=== PATIENT | female | born 1975 | race African-American/Black ===

== ENCOUNTER 2017-07-07 12:14 | Emergency (ER) | payer MEDICAID, SELFPAY ==
--- NOTE | 2017-07-07 13:23 | RAD ---
TWO VIEWS OF THE CHEST: COMPARISON: 05/31/12. HISTORY: Flu-like symptoms with cough and fever. FINDINGS: Two views of the chest show normal sized cardiomediastinal silhouette. There is no evidence of consol idation, mass, or pleural effusion. The bones are unremarkable. IMPRESSION: No evidence of acute cardiopulmonary disease. POS: [facility]
[2017-07-07 13:27] LABS: #Lymphocytes 1.2 thou/uL (1.20-3.40); #Monocytes 0.2 thou/uL (0.11-0.59); #Neutrophils 3.2 thou/uL (1.40-6.50); %Basophils 0.2 % (0.0-1.0); %Monocytes 4.7 % (0.0-10.0); %Neutrophils 70.1 % (42.0-75.0); Hemoglobin 13.2 g/dL (12.0-16.0); Mean Corpuscular HGB CONC 32.2 g/dL (32.0-36.0); Mean Corpuscular Hemoglobin 27.4 pg (27.0-31.0); Mean Platelet Volume 7.7 fL (7.4-10.4); Platelet Count 221 thou/uL (130-400); RBC Distribution Width 13.4 % (11.5-14.5); Red Blood Cell (RBC) Count 4.81 mill/uL (4.20-5.40); White Blood Cell (WBC) Count 4.6 thou/uL (4.8-10.8)
[2017-07-07 13:48] LABS: ALT (SGPT) 18 U/L (8-55); AST (SGOT) 22 U/L (5-34); Albumin 3.6 g/dL (3.5-5.0); Alkaline Phosphatase 96 U/L (40-150); Anion Gap 14 mmol/L (10-20); BUN (Urea Nitrogen) 11 mg/dL (7.0-18.7); Bilirubin, Total 0.3 mg/dL (0.2-1.2); Calc. Creatinine Clearance 0 mL/min (70-130); Calcium 8.8 mg/dL (7.8-10.44); Carbon Dioxide 22 mmol/L (22-29); Chloride 100 mmol/L (98-107); Estimated GFR-MDRD Greater than 90; Globulin 3.9 g/dL (2.4-3.5); Glucose 91 mg/dL (70-105); Potassium 3.1 mmol/L (3.5-5.1); Protein, Total 7.5 g/dL (6.0-8.3); Sodium 133 mmol/L (136-145)
[2017-07-07 13:51] LABS: CKMB 0.4 ng/mL (0-6.6); Troponin I 0.016 ng/mL (< 0.028)
--- NOTE | 2017-07-27 16:10 | EKG ---
Test Reason : Blood Pressure : / mmHG Vent. Rate : 081 BPM Atrial Rate : 081 BPM P-R Int : 142 ms QRS Dur : 086 ms QT Int : 364 ms P-R-T Axes : 044 053 031 degrees QTc Int : 422 ms Normal sinus rhythm Normal ECG Confirmed by MAXIMINO MULLER M.D. ([id number]), script editor CARLOS ALBERTO FIORE ([id number]) on 07/27/2017 4:09:36 PM Referred By: Confirmed By:MAXIMINO MULLER M.D.
== END 2017-07-07 13:40 | disposition home or self-care (01) ==
LOC: ERS 12:14
DX: B34.9 Viral infection, unspecified (principal); I10 Essential (primary) hypertension; J45.909 Unspecified asthma, uncomplicated; F17.210 Nicotine dependence, cigarettes, uncomplicated
CPT/HCPCS: 36415; 71046; 80053; 82553; 84484; 85025; 87804; 93005; 99406

== ENCOUNTER 2018-05-26 08:42 | Outpatient (CLI) | payer OTHER | END 2018-05-26 08:43 | disposition home or self-care (01) | LOC: BICMAMMO 08:42 | PROVIDERS: ATTEND Family Medicine | DX: N64.4 Mastodynia (principal) | CPT/HCPCS: 77066; G0279 ==

== ENCOUNTER 2019-04-13 09:08 | Inpatient (IN) | payer SELFPAY ==
--- NOTE | 2019-04-13 12:32 | HP ---
HISTORY OF PRESENT ILLNESS: A 43-year-old woman, [facility] [place] [facility] with insidious onset epigastric to right upper quadrant abdominal pain, which started approximately 0200 hours. Pain is described as sharp without radiation. Pain was associated with multiple episodes of nonbilious and nonbloody emesis. Dinner last night consisted of fried chicken and ranch potatoes. The patient recalls similar pain in the past over the last 2 months intermittently associated with eating, especially pizza or fried food. She recalls the pain in the past not as severe as what brought her to the emergency department today. PAST MEDICAL HISTORY: Pertinent for essential hypertension and gastroesophageal reflux disease. PAST SURGICAL HISTORY: Pertinent for bilateral tubal ligation 21 years ago. SOCIAL HISTORY: She works in [employer]. She smokes half pack cigarettes per day, has done so since age 26. She admits to occasional intake of ethanol in moderate amount. She denies any illicit drug abuse. FAMILY HISTORY: Notable for heart disease in her mother, cervical carcinoma in her mother, various family members on both sides of the family with diabetes mellitus. PRE-HOSPITALIZATION MEDICATIONS: Includes, 1. Clonidine 0.2 mg p.o. at bedtime. 2. Amlodipine 10 mg p.o. daily. 3. Atenolol 25 mg p.o. daily. 4. Nexium 20 mg p.o. daily. ALLERGIES: LISINOPRIL. REVIEW OF SYSTEMS: Essentially unremarkable, except as stated in past medical history and chief complaint. PHYSICAL EXAMINATION: GENERAL: This reveals a 43-year-old normally developed woman, who is otherwise coherent and interactive and appears stated age. The patient is alert and oriented x3, appears to be in no acute distress at time of my evaluation. VITAL SIGNS: Include blood pressure is 122/90, pulse is 48, respiratory rate is 17, and oxygen saturation is 100% on room air. HEENT: Reveals normocephalic and atraumatic. Pupils are equal, round, and reactive to light and accommodation. Extraocular muscles are intact bilaterally. She has no scleral icterus present. HEART: Reveals regular rate with sinus bradycardia. No murmurs or gallops auscultated. LUNGS: Clear to auscultation bilaterally. Her breathing is regular and nonlabored. ABDOMEN: Soft and obese with moderate epigastric to right upper quadrant tenderness to palpation. She has a positive Delacruz sign. Liver and spleen are otherwise nonpalpable below costal margins. EXTREMITIES: Reveal 2+ radial and pedal pulses bilaterally. No ankle edema is present. NEUROLOGIC: Reveals no focal deficits present. LABORATORY FINDINGS: Today includes a CBC with 7300 white blood cells, hemoglobin and hematocrit 12.9 and 42.8 respectively. Platelet count is 341,000. Metabolic profile; sodium is 140, potassium is 3.4, chloride is 106, bicarb is 26, BUN is 10, creatinine is 0.75, glucose is 100. AST and ALT normal at 15 and 13 respectively. Total bilirubin is also normal at 0.2. Alkaline phosphatase is marginally elevated at 112 units/L. I have personally reviewed abdominal ultrasound, which is remarkable for large solitary gallstone impacting gallbladder neck. There is gallbladder wall thickening at 3 mm. Common bile duct is normal for this patient's age at 3 mm in diameter. There is no pericholecystic fluid noted. IMPRESSIONS: 1. Acute cholecystitis with cholelithiasis. 2. Morbid obesity. 3. History of essential hypertension. RECOMMENDATIONS: Laparoscopic cholecystectomy. I have advised the patient of the above findings and recommendations. I have also informed her of the risks and benefits of the proposed surgery to include, but not limited to bleeding, infection, injury to bile duct or surrounding structures. The patient indicates understanding of the information I provided her today in the presence of her nurse. I have answered her questions. The patient has granted consent for this admission and surgical intervention. Job ID: [id number]
[2019-04-13 13:08] LABS: Prothrombin Time 13.1 SEC (12.0-14.7)
[2019-04-13 13:15] LABS: PTT 29.3 SEC (22.9-36.1)
[2019-04-13 14:19] VITALS: BMI 37.5
[2019-04-13] MEDS ORDERED: Ondansetron PF 4 MG/2 ML Vial IVP PRN ×2 (14:51→21:32)
[2019-04-13] MEDS ORDERED: Acetaminophen 325 MG TAB PO PRN (14:51)
[2019-04-13] MEDS ORDERED: Ondansetron ODT 4 MG TAB SL PRN (14:51)
[2019-04-13] MEDS ORDERED: Sodium Chloride 0.9% 100 ML ONE (18:28)
[2019-04-13] MEDS ORDERED: cefOXitin 2 GM VIAL ONE (18:28)
[2019-04-13] MEDS ORDERED: Bupivacaine/Epinephrine 0.25% 30 ML VIAL ONE (18:57)
[2019-04-13] MEDS ORDERED: Iothalamate Meglumine 60% 50 ML VIAL FS ONE (18:57)
[2019-04-13] MEDS ORDERED: Midazolam HCl 2 mg/2 ml Vial ONE (20:35)
[2019-04-13] MEDS ORDERED: Fentanyl 100 MCG/2 ML VIAL ONE ×4 (20:35→22:31)
[2019-04-13] MEDS ORDERED: Lidocaine 2% Jelly 5 ML TUBE ONE (20:36)
[2019-04-13] MEDS ORDERED: HYDROmorphone 0.5 MG/0.5 ML SYRINGE ONE (20:36)
[2019-04-13] MEDS ORDERED: Dextrose 50% Abboject 50 ML SYRINGE SLOW IVP PRN (21:32)
[2019-04-13] MEDS ORDERED: HYDROcodone/Acetaminophen 7.5/325 mg Tablet PO PRN ×2 (21:32)
[2019-04-13] MEDS ORDERED: Dextrose 5% in Water 1,000 ML IV PRN (21:32)
[2019-04-13] MEDS ORDERED: Promethazine HCl 25 MG/ML VIAL IM PRN ×2 (21:32→21:38)
[2019-04-13] MEDS ORDERED: hydrALAZINE 20 MG/ML VIAL SLOW IVP PRN (21:32)
[2019-04-13] MEDS ORDERED: Calcium Carbonate 500 MG ChewTAB PO PRN (21:32)
[2019-04-13] MEDS ORDERED: Morphine 4 MG/ML VIAL SLOW IVP PRN (21:32)
[2019-04-13] MEDS ORDERED: Morphine 2 MG/ML SYRINGE SLOW IVP PRN (21:32)
[2019-04-13] MEDS ORDERED: Mag-Al 1200 mg/1200 mg/30 ML UDCUP PO PRN (21:32)
[2019-04-13] MEDS ORDERED: Ondansetron HCl/PF 4 MG/2 ML Vial IVP PRN (21:38)
[2019-04-13] MEDS ORDERED: HYDROmorphone 2 MG/ML VIAL SLOW IVP PRN (21:38)
[2019-04-13] MEDS ORDERED: Promethazine HCl 25 MG/ML VIAL SLOW IVP PRN (21:38)
[2019-04-13] MEDS ORDERED: Famotidine/PF 20 mg/2ml Vial SLOW IVP SCH (22:15)
[2019-04-13] MEDS: Sodium Chloride 0.9% 1,000 ML IV SCH (23:57)
[2019-04-14] MEDS: cefOXitin 2 GM in Sodium Chloride 0.9% 100 ML IVPB SCH ×2 (01:59→08:52)
--- NOTE | 2019-04-14 03:57 | OP ---
DATE OF PROCEDURE: 04/13/2019 PREOPERATIVE DIAGNOSIS: Acute cholecystitis. POSTOPERATIVE DIAGNOSIS: Acute cholecystitis. PROCEDURE PERFORMED: Laparoscopic cholecystectomy. ANESTHESIA: General. ESTIMATED BLOOD LOSS: Minimal. COMPLICATIONS: None. SPECIMEN: Gallbladder. FINDINGS: Cholecystitis. DESCRIPTION OF PROCEDURE: The patient was taken to the operating room and laid supine on the operating room table. After general anesthetic was obtained, the abdomen was prepped and draped in a sterile fashion. A curved incision was made below the umbilicus. Cautery was used to dissect down to the umbilical fascia. Umbilical fascia was incised and held up using a Ashly. The abdominal cavity was entered using a Zhanna clamp. Holding stitch of Vicryl was placed on each side of the fascia. Hendrix trocar was placed. High-flow pneumoperitoneum was obtained. An upper midline 5 mm port and 2 right upper quadrant 5 mm ports were placed under direct camera visualization. The gallbladder was retracted from the gallbladder fossa. The peritoneum of the gallbladder was opened anteriorly and posteriorly. The critical view triangle was seen showing only the cystic duct and cystic artery branching from medial to lateral. There were no other branching structures. Two clips were placed proximally on the cystic duct and one laterally. It was cut using laparoscopic scissors. The cystic artery was taken in the same way. Electrocautery was then used to dissect the gallbladder out of the gallbladder fossa. The gallbladder was placed in an Endo catch bag and brought out through the Hendrix. There was no bleeding or bile in the liver bed. The cystic duct stump and cystic artery stump were intact, without evidence of extravasation or bleeding. All port sites were infiltrated using local anesthesia. All ports were removed under camera visualization. Pneumoperitoneum was let down. The Vicryl was used to close the fascial defect below the umbilicus. All incisions were irrigated and closed using 4-0 Monocryl and Dermabond. The patient was en route to Recovery in stable condition. All instrument counts, needle counts and lap counts were correct. Job ID: [id number]
[2019-04-14] MEDS ORDERED: Famotidine 20 MG TAB PO SCH (09:00)
[2019-04-14] MEDS ORDERED: Famotidine/PF 20 mg/2ml Vial SLOW IVP SCH (09:00)
[2019-04-14 11:03] VITALS: BP 163/94; TEMP 97.7
[2019-04-14] MEDS: Sodium Chloride 0.9% 1,000 ML IV SCH (12:39)
[2019-04-14 13:06] LABS: Troponin I Less than 0.010 ng/mL (< 0.028)
[2019-04-14] MEDS ORDERED: Atenolol 25 MG TAB PO SCH (13:30)
[2019-04-14] MEDS ORDERED: Amlodipine 5 MG TAB PO SCH (13:30)
--- NOTE | 2019-04-14 16:37 | EKG ---
Test Reason : C/O CHEST PAIN Blood Pressure : / mmHG Vent. Rate : 063 BPM Atrial Rate : 063 BPM P-R Int : 150 ms QRS Dur : 092 ms QT Int : 376 ms P-R-T Axes : 056 083 058 degrees QTc Int : 384 ms Normal sinus rhythm with sinus arrhythmia Normal ECG Confirmed by EBEN TELLEZ ([id number]) on 04/14/2019 4:37:28 PM Referred By: DARCI Confirmed By:EBEN TELLEZ
--- NOTE | 2019-04-14 18:14 | DIS ---
DATE OF ADMISSION: 04/13/2019 DATE OF DISCHARGE: 04/14/2019 ADMITTING DIAGNOSIS: Acute cholecystitis. DISCHARGE DIAGNOSIS: Acute cholecystitis. PROCEDURE PERFORMED: Laparoscopic cholecystectomy by Dr. Walker without complication. CONDITION ON DISCHARGE: Improved. HOSPITAL COURSE: See hospital chart for details of hospitalization. Job ID: [id number]
== END 2019-04-14 13:33 | disposition home or self-care (01) | DRG 419 ==
LOC: ERS 09:08 → ERHOLD 10:35 → SURG A 13:56
PROVIDERS: ADMIT Internal Medicine; ATTEND Internal Medicine
PROC: 0FT44ZZ Resection of Gallbladder, Percutaneous Endoscopic Approach (ICD-10-PCS; principal; 2019-04-13)
DX: K80.00 Calculus of gallbladder with acute cholecystitis without obstruction (principal); I10 Essential (primary) hypertension; K21.9 Gastro-esophageal reflux disease without esophagitis; F17.200 Nicotine dependence, unspecified, uncomplicated; E66.01 Morbid (severe) obesity due to excess calories; Z79.899 Other long term (current) drug therapy; Z88.8 Allergy status to other drugs, medicaments and biological substances; Z68.37 Body mass index [BMI] 37.0-37.9, adult
CPT/HCPCS: 36415; 84484; 85610; 85730; 86850; 86900; 86901; 88304; 93005; 93010; J0360; J0694; J1170; J2250; J2270; J3010; J3490; S0028

== ENCOUNTER 2019-11-26 13:12 | Outpatient (CLI) | payer OTHER ==
--- NOTE | 2019-11-26 15:08 | MMO ---
Bilateral MAMMO Bilat Diag DDI+JOSE. CLINICAL HISTORY: Patient is 43 years old and is seen for diagnostic exam,non-bloody discharge, nipple abnormality and pain in the left breast. The patient has no family history of breast cancer. The patient has no personal history of cancer. The patient has a history of bilateral Cyst Aspiration in March, - bilateral nipple piercings removed 05/2019. VIEWS: The views performed were: bilateral craniocaudal with tomosynthesis; bilateral mediolateral oblique with tomosynthesis; and bilateral mediolateral with tomosynthesis. FILMS COMPARED: The present examination has been compared to prior imaging studies performed at [facility] on 05/26/2018 and 11/26/2019. This study has been interpreted with the assistance of computer-aided detection. MAMMOGRAM FINDINGS: The breasts are heterogeneously dense, which could obscure a lesion on mammography. New mass noted in the retroareolar region of the left breast correlates with a complex cystic lesion on ultrasound. This measures 1.6cm and appears to extend to the base of the nipple. The patient reports discharge on this side at the site of a prior nipple piercing. The area of concern persists despite antibiotics treatments. There are also two enlarging intramammary nodes on the left, likely reactive in nature. Findings are concerning for retroareolar abscess. Surgical consultation advised. In the right breast, there are no suspicious masses, calcifications or areas of architectural distortion. IMPRESSION: FINDING IN THE LEFT BREAST IS PROBABLY BENIGN. FOLLOW-UP IN 6 MONTHS IS RECOMMENDED. THE RESULTS OF THIS EXAM WERE SENT TO THE PATIENT. ACR BI-RADS Category 3 - Probably benign finding - short interval follow-up suggested. [facility] will notify the patient of the need for additional imaging services. A surgical consultation is advised at this time secondary to concern for retroareolar abscess. After definitive treatment, follow up ultrasound and mammogram on the left advised to ensure resolution. This follow up imaging could be performed earlier than 6 months from now, preferably soon after surgical treatment. Bailey Hillman made aware at the time of interpretation. MAMMOGRAPHY NOTE: 1. A negative mammogram report should not delay a biopsy if a dominant of clinically suspicious mass is present. 2. Approximately 10% to 15% of breast cancers are not detected by mammography. 3. Adenosis and dense breasts may obscure an underlying neoplasm. Reported by: SHERRILL HOBSON MD Electonically Signed: [id number]
--- NOTE | 2019-11-26 17:13 | ULT ---
FOCUSED ULTRASOUND OF THE LEFT BREAST: 11/26/19 COMPARISON: None. HISTORY: 52-year-old female who reports a history of bilateral nipple piercing in the past. The patient report s that the left nipple piercing site has been draining fluid. The piercings were removed at the time of a recent gallbladder surgery, within the last eight months or so. The patient reports multiple ant ibiotic treatments which have not alleviated the retroareolar pain and left discharge. The patient re ports that the discharge is yellow fluid which is emanating from the previous nipple piercing site. FINDINGS: Focused ultrasound of the retroareolar region demonstrates a complex fluid collection measuring at le ast 1.8 x 1.2 cm which appears to demonstrate a communication with region of the nipple. Findings in this clinical context suggests an abscess in the left retroareolar region. Prominent intramammary lymph nodes are noted at the 2 o'clock position of the left breast measuring 7 mm and 6 mm in short axis dimensions respectively, 5 cm and 14 cm from the nipple respectively. IMPRESSION: BIRADS 3: Probably Benign Finding Initial Short-Interval Follow-Up Suggested Initial short-term follow up (usually 6-month) examination. The complex cystic lesion in the left retroareolar region with continuity to the adjacent nipple is f elt to most likely represent a breast abscess given the patient's provided clinical history. Enlarged nodes within the 2 o'clock position of the left breast are likely reactive in nature. Recommend surgical consultation to assess the retroareolar findings. If clinically warranted, aspirat ion of the retroareolar lesion could be performed via ultrasound. Following definitive treatment of t his area, a follow-up ultrasound and diagnostic mammogram on the left is advised to document resoluti on, and thus exclude concurrent malignancy. Results and recommendations discussed with the patient at the time of interpretation, 11/26/19. Resul ts also called to Dr. Hillman at the time of interpretation. Code CR
== END 2019-11-26 13:13 | disposition home or self-care (01) ==
LOC: BICMAMMO 13:12
PROVIDERS: ATTEND Family Medicine
DX: N60.12 Diffuse cystic mastopathy of left breast (principal); N63.21 Unspecified lump in the left breast, upper outer quadrant; N60.02 Solitary cyst of left breast
CPT/HCPCS: 77066; G0279

== ENCOUNTER 2020-04-18 06:30 | Outpatient (CLI) | payer OTHER ==
[2020-04-18 13:43] LABS: #Eosinphils 0.2 10x3/uL (0.0-0.5); #Monocytes 0.5 10x3/uL (0.0-1.1); #Neutrophils 3.4 10x3/uL (1.5-8.4); %Basophils 0.6 % (0.0-2.0); %Eosinophils 3.3 % (0.0-6.0); %Lymphocytes 39.9 % (18.0-47.0); %Monocytes 7.2 % (0.0-10.0); %Neutrophils 48.6 % (40.0-75.0); Hemoglobin 12.1 g/dL (12.0-16.0); Mean Corpuscular HGB CONC 32.2 G/DL (32.0-36.0); Mean Corpuscular Hemoglobin 26.8 PG (27.0-33.0); Mean Corpuscular Volume 83.4 fl (80.0-100.0); Mean Platelet Volume 10.1 fl (7.4-10.4); Platelet Count 345 10x3/uL (130-400); Red Blood Cell (RBC) Count 4.51 10x6/uL (3.90-5.20)
[2020-04-18 13:49] LABS: Anion Gap 12 mmol/L (10-20); BUN (Urea Nitrogen) 11 mg/dL (7.0-18.7); Calc. Creatinine Clearance 0 mL/min (70-130); Calcium 8.7 mg/dL (7.8-10.44); Carbon Dioxide 25 mmol/L (22-29); Chloride 106 mmol/L (98-107); Estimated GFR-MDRD Greater than 90; Glucose 87 mg/dL (70-105); Potassium 4.2 mmol/L (3.5-5.1); Sodium 139 mmol/L (136-145)
--- NOTE | 2020-04-18 21:08 | EKG ---
Test Reason : Blood Pressure : / mmHG Vent. Rate : 069 BPM Atrial Rate : 069 BPM P-R Int : 150 ms QRS Dur : 088 ms QT Int : 392 ms P-R-T Axes : 041 096 046 degrees QTc Int : 420 ms Normal sinus rhythm Rightward axis Borderline ECG No previous ECGs available Confirmed by Toyin REAL ([id number]) on 04/18/2020 9:08:31 PM Referred By: DELMI Confirmed By:Toyin REAL
[2020-04-19 09:20] LABS: SARS-CoV-2 NAA Rapid Test Not Detected (NotDetected)
== END 2020-04-18 06:31 | disposition home or self-care (01) ==
LOC: LABBT 06:30
PROVIDERS: ATTEND Specialist
DX: Z01.818 Encounter for other preprocedural examination (principal); N61.1 Abscess of the breast and nipple; Z20.828 Contact with and (suspected) exposure to other viral communicable diseases
CPT/HCPCS: 80048; 85025; 87635; 93005; 93010; U0002; U0003

== ENCOUNTER 2020-04-19 12:01 | Day surgery (SDC) | payer OTHER, SELFPAY ==
[2020-04-19] MEDS ORDERED: PROPOFOL 200 MG/20 ML VIAL ONE (12:43)
[2020-04-19] MEDS ORDERED: Ondansetron PF 4 MG/2 ML Vial ONE (12:43)
[2020-04-19] MEDS ORDERED: Lidocaine 1% PF 5 ML VIAL ONE (12:43)
[2020-04-19] MEDS ORDERED: Dexamethasone 20 MG/5 ML VIAL ONE (12:43)
[2020-04-19] MEDS ORDERED: Acetaminophen 500 MG TAB ONE (12:58)
[2020-04-19] MEDS ORDERED: Ketorolac Tromethamine 30 MG/ML VIAL ONE (12:58)
[2020-04-19] MEDS ORDERED: Fentanyl 100 MCG/2 ML VIAL ONE ×2 (16:32→17:48)
[2020-04-19] MEDS ORDERED: SUGAMMADEX SODIUM 200 MG/2 ML VIAL ONE (16:32)
[2020-04-19] MEDS ORDERED: Bupivacaine/Epinephrine 0.25% 30 ML VIAL ONE (17:13)
--- NOTE | 2020-04-20 14:14 | OP ---
DATE OF PROCEDURE: 04/19/2020 PREOPERATIVE DIAGNOSIS: Chronic, recurrent left breast abscess. POSTOPERATIVE DIAGNOSIS: Chronic, recurrent left breast abscess. TEST PERFORMED: Incision and drainage of chronic left breast abscess with debridement of abscess cavity. ANESTHESIA: General with laryngeal mask airway. INDICATIONS: Patient is a 44-year-old black female. I have cared for her left breast abscess over the past several months with multiple aspirations and long-term oral antibiotics. I recently aspirated again secondary to severe pain. At this juncture, I recommend open drainage of this abscess with debridement. DESCRIPTION OF OPERATION: Informed consent was obtained. Patient was taken to the operating room, where general anesthesia was obtained patient in supine position. Left breast was prepped with ChloraPrep and draped in a sterile fashion. Ultrasound was utilized to identify area of current abscess cavity. I selected a circumareolar incision at the upper outer aspect of the left breast. Local anesthetic was infiltrated using 0.25% Marcaine with epinephrine. Dissection was carried deeply after the incision was created. Dissection was carried directly down into the abscess cavity. This was easily palpable as a firm indurated mass within the breast. Once it was entered, contents were aspirated. This appeared to be a cavity that was about 3 to 4 cm in diameter. It did seem to extend up towards the underside of the nipple-areolar complex. I carefully debrided and excised the entire abscess cavity, primarily using electrocautery. when all of the abscess cavity been debrided and passed off the field as a specimen, the dissection was carried up towards the nipple where there still appeared to be abnormal grayish tissue. I have then flushed the wound with peroxide and packed with dry gauze. Additional dry gauze dressing was placed externally. There were no complications. Patient tolerated the procedure well, was taken to recovery room in stable condition. Job ID: [id number]
== END 2020-04-19 19:58 | disposition home or self-care (01) ==
LOC: SDC 12:01
PROVIDERS: ATTEND Specialist
PROC: 0H9U0ZZ Drainage of Left Breast, Open Approach (ICD-10-PCS; principal; 2020-04-19)
DX: N61.1 Abscess of the breast and nipple (principal); F17.200 Nicotine dependence, unspecified, uncomplicated; Z79.899 Other long term (current) drug therapy; Z88.8 Allergy status to other drugs, medicaments and biological substances
CPT/HCPCS: 88304; J0690; J1100; J1885; J2405; J2704; J3010

== ENCOUNTER 2022-06-21 09:55 | Emergency (ER) | payer SELFPAY ==
[2022-06-21] MEDS ORDERED: Morphine 4 MG/ML VIAL ONE (10:31)
[2022-06-21 11:23] LABS: #Basophils 0.1 thou/uL (0.0-0.2); #Eosinphils 0.3 thou/uL (0.0-0.7); #Lymphocytes 2.3 thou/uL (1.20-3.40); #Monocytes 0.6 thou/uL (0.11-0.59); #Neutrophils 4.9 thou/uL (1.40-6.50); %Basophils 0.9 % (0.0-1.0); %Eosinophils 3.8 % (0.0-10.0); %Lymphocytes 28.3 % (21.0-51.0); %Monocytes 7.5 % (0.0-10.0); %Neutrophils 59.5 % (42.0-75.0); Hemoglobin 12.7 g/dL (12.0-16.0); Mean Corpuscular Volume 87.8 fl (78.0-98.0); Mean Platelet Volume 7.4 fL (7.4-10.4); Platelet Count 310 10x3/uL (130-400); Red Blood Cell (RBC) Count 4.39 mill/uL (4.20-5.40); White Blood Cell (WBC) Count 8.2 10x3/uL (4.8-10.8)
[2022-06-21 11:49] LABS: Anion Gap 10 mmol/L (10-20); BUN (Urea Nitrogen) 10 mg/dL (7.0-18.7); Calc. Creatinine Clearance 0 mL/min (70-130); Carbon Dioxide 25 mmol/L (22-29); Chloride 105 mmol/L (98-107); Potassium 4.1 mmol/L (3.5-5.1); Sodium 136 mmol/L (136-145)
[2022-06-21 11:50] LABS: ALT (SGPT) 14 U/L (8-55); AST (SGOT) 17 U/L (5-34); Albumin 3.6 g/dL (3.5-5.0); Alkaline Phosphatase 122 U/L (40-110); Bilirubin, Total 0.3 mg/dL (0.2-1.2); Calcium 8.8 mg/dL (7.8-10.44); Estimated GFR 100; Globulin 3.2 g/dL (2.4-3.5); Glucose 92 mg/dL (70-105); Protein, Total 6.8 g/dL (6.0-8.3)
[2022-06-21] MEDS ORDERED: predniSONE 20 MG TAB ONE (14:19)
[2022-06-21] MEDS ORDERED: Ketorolac Tromethamine 30 MG/ML VIAL ONE (14:19)
== END 2022-06-21 14:23 | disposition home or self-care (01) ==
LOC: ERS 09:55
DX: M25.521 Pain in right elbow (principal); I10 Essential (primary) hypertension; K21.9 Gastro-esophageal reflux disease without esophagitis; F17.210 Nicotine dependence, cigarettes, uncomplicated; Z79.899 Other long term (current) drug therapy
CPT/HCPCS: 20605; 36415; 77002; 80053; 83605; 85025; 87040; 94760; 96374; 96375; J1885; J2270; J7512